=== PATIENT | male | born 1960 | race Caucasian/White ===

== ENCOUNTER 2021-03-01 09:09 | Emergency (ER) | payer OTHER ==
[2021-03-01 09:51] LABS: BASOPHIL 0.5 % (0-2); EOSINOPHIL 2.6 % (0-5); HCT 50.2 % (42.0-52.0); HGB 17.2 g/dl (13.2-18.0); LYMPHOCYTE 38.1 % (15-48); MCH 29.9 pg (25.0-31.0); MCHC 34.3 g/dL (32.0-36.0); MCV 87.2 fL (78.0-100.0); MONOCYTE 9.5 % (0-12); MPV 9.7 fL (6.0-9.5); NEUTROPHIL 48.5 % (41-80); NRBC 0; PLT 217 K/uL (150-400); RBC 5.76 M/uL (4.70-6.00); RDW 12.6 % (11.5-14.0); WBC 7.7 K/uL (4.0-10.5)
[2021-03-01 09:52] LABS: BILIRUBIN NEGATIVE (NEGATIVE); BLOOD 3+ Ery/uL (NEGATIVE); CLARITY HAZY (CLEAR); COLOR YELLOW (YELLOW); GLUCOSE (U) TRACE mg/dL (NORMAL); LEUKOCYTES NEGATIVE Leu/uL (NEGATIVE); NITRITE NEGATIVE (NEGATIVE); PROTEIN NEGATIVE (NEGATIVE); SPECIFIC GRAVITY >=1.030 (1.001-1.030); UROBILINOGEN 0.2 mg/dL (0.2-1.0)
[2021-03-01 10:04] LABS: BACTERIA TRACE; CALCIUM OXALATE CRYSTALS MODERATE; URINARY RBC 20-50
[2021-03-01 10:11] LABS: ALBUMIN 3.8 g/dL (3.4-5.0); BILIRUBIN - TOTAL 0.6 mg/dL (0.2-1.0); BUN/CREAT RATIO (CALC) 13.4 RATIO; CREATININE 1.12 mg/dL (0.67-1.17); GLOBULIN (CALCULATION) 3.6 g/dL; PHOSPHORUS 2.2 mg/dL (2.6-4.7); POTASSIUM 4.3 mmol/L (3.5-5.1); TOTAL PROTEIN 7.4 g/dL (6.4-8.2)
[2021-03-01] MEDS ORDERED: PERCOCET 5-3251 EACH PO (11:06)
[2021-03-01] MEDS ORDERED: ONDANSETRON ODT4 MG PO (11:06)
[2021-03-01] MEDS ORDERED: FLOMAX0.4 MG PO (11:06)
== END 2021-03-01 11:40 | disposition home or self-care (01) ==
LOC: FER 09:09
PROVIDERS: Internal Medicine
DX: N13.2 Hydronephrosis with renal and ureteral calculous obstruction (principal); R91.1 Solitary pulmonary nodule; R31.9 Hematuria, unspecified; I10 Essential (primary) hypertension; Z88.6 Allergy status to analgesic agent; Z88.5 Allergy status to narcotic agent
CPT/HCPCS: 36415; 80053; 81001; 84100; 85025; J1170; J1200; J7030